=== PATIENT | female | born 1940 | race Asian ===

== ENCOUNTER 2021-06-02 17:21 | Emergency (ER) | payer MEDICARE, OTHER ==
[2021-06-02] MEDS ORDERED: EPINEPHrine 1 MG/ML AMP IM STA (17:32)
[2021-06-02] MEDS ORDERED: diphenhydrAMINE INJ 50 MG/ML VIAL IVP STA (17:33)
[2021-06-02] MEDS ORDERED: methylPREDNISolone SUCCINATE 125 MG/2 ML VIAL IVP STA (17:33)
--- NOTE | 2021-06-02 17:44 | ED Physician Documentation ---
History of Present Illness - Stated complaint Stated Complaint: CAN'T BREATHE - Chief complaint Chief Complaint: Allergic Rx - History obtained from History obtained from: Patient - History of Present Illness Timing: Today, How many hours ago (1) Pain level max: 0 Pain level now: 0 - Additonal information Additional information: Patient is a 80-year-old female who presents to the emergency department with a 1 hour history of hives on her arms and neck. Facial swelling and tongue swelling. She states she has allergies to pollen. Has never had a similar reaction. Nothing makes it better or worse. No foods, soaps, detergents, medication. Review of Systems Constitutional: denies: Fever Throat: denies: Sore throat Cardiac: denies: Palpitations Respiratory: reports: Dyspnea. denies: Cough, Wheezing GI: denies: Vomiting, Diarrhea Skin: denies: Rash Musculoskeletal: denies: Neck pain, Back pain Neurologic: denies: Headache PD PAST MEDICAL HISTORY - Past Medical History Cardiovascular: Hypertension Endocrine/Autoimmune: Type 2 diabetes, Other - Past Surgical History Past Surgical History: No - Present Medications Home Medications: Ambulatory Orders Medication Instructions Recorded Confirmed Adalimumab [Humira] 40 mg SQ UD 05/09/17 05/09/17 Alendronate [Fosamax] 70 mg PO Q7D 05/09/17 05/09/17 Aspirin [Adult Low Dose Aspirin EC] 81 mg PO DAILY 05/09/17 05/09/17 Folic Acid 1 mg PO DAILY 05/09/17 05/09/17 Mecobalamin [B-12] 1,000 mcg PO DAILY 05/09/17 05/09/17 Metformin HCl 850 mg PO BID 05/09/17 05/09/17 Methotrexate [Methotrexate Sodium] 2.5 mg PO DAILY 05/09/17 05/09/17 [place]-3/Dha/Epa/Fish Oil [Fish Oil 1,000 mg PO DAILY 05/09/17 05/09/17 1,000 mg Softgel] Sitagliptin Phosphate [Januvia] 50 mg PO BID 05/09/17 05/09/17 amLODIPine [Norvasc] 5 mg PO DAILY 05/09/17 05/09/17 atenoloL [Atenolol] 25 mg PO DAILY 05/09/17 05/09/17 lisinopriL [Lisinopril] 40 mg PO BID 05/09/17 05/09/17 - Allergies Allergies/Adverse Reactions: Allergies Allergy/AdvReac Type Severity Reaction Status Date / Time No Known Drug Allergies Allergy Verified 06/02/21 17:31 - Social History Does the pt smoke?: No Smoking Status: Never smoker Does the pt drink ETOH?: No Does the pt have substance abuse?: No - Immunizations Immunizations are current?: Yes - POLST Patient has POLST: No PD ED PE NORMAL - Vitals Vital signs reviewed: Yes - General General: Alert and oriented X 3, No acute distress, Well developed/nourished - HEENT HEENT: Moist mucous membranes, Pharynx benign, Other (Diffuse facial swelling, mild tongue swelling) - Neck Neck: Supple, no meningeal sign - Cardiac Cardiac: RRR - Respiratory Respiratory: No respiratory distress, Other (No stridor. Mild wheezing) - Abdomen Abdomen: Soft, Non tender, Non distended - Derm Derm: Warm and dry, Other (Urticaria on the upper back and neck) - Extremities Extremities: No edema - Neuro Neuro: Alert and oriented X 3 Results - Vitals Vitals: Vital Signs - 24 hr 06/02/21 06/02/21 06/02/21 17:25 17:31 18:01 Temperature 36.8 C Heart Rate 88 85 87 Respiratory 16 15 23 Rate Blood Pressure 219/96 H 225/96 H 182/75 H O2 Saturation 93 98 99 Oxygen O2 Source Room air - EKG (time done) 1729 Rate: Rate (enter#) (84) Rhythm: NSR [place]: Normal Intervals: Normal DC QRS: Normal Ischemia: Normal ST segments, Non specific changes PD MEDICAL DECISION MAKING - ED course Complexity details: considered differential, d/w patient ED course: Patient with apparent allergic reaction. Given epinephrine, Solu-Medrol and Benadryl. Patient is improving. Patient will need observation for at least 2 hours post epinephrine injection. Patient will be signed out to the oncoming emergency department physician for final disposition.
[2021-06-02 20:41] VITALS: BP 170/70
--- NOTE | 2021-06-22 17:50 | ED Physician Documentation ---
ED Addendum - Addendum Addendum: 06/22/21 17:44 Received sign out from Dr. Stone at end of his shift pending further o bservation. Patient presented with symptoms c/w allergic reaction without obvious trigger. As the symptoms included facial and oropharyngeal swelling, treatment included IM epinephrine. She was significantly improved at time of turn over of care but given the nature of the symptoms and use of epinephrine as treatment, plan includes observation in ED for recurrence of symptoms. When I reevaluated patient she is AAOx3 and in NAD, reports resolution of symptoms without any recurrence. She is comfortable with discharge home. There is no facial nor oropharyngeal swelling on my exam and lungs are CTA bilaterally DISPOSITION: 01 HOME, SELF CARE CLINICAL IMPRESSION: ALLERGIC REACTION, OTHER CONDITION: GOOD
== END 2021-06-02 20:58 | disposition home or self-care (01) ==
LOC: ED 17:21
DX: E11.9 Type 2 diabetes mellitus without complications (principal); Z79.84 Long term (current) use of oral hypoglycemic drugs; I10 Essential (primary) hypertension
CPT/HCPCS: 36415; 93005; 96372; 96374; 96375; 99283; J1200

== ENCOUNTER 2021-08-20 13:59 | Emergency (ER) | payer MEDICARE, OTHER ==
--- NOTE | 2021-08-20 14:16 | ED Physician Documentation ---
PD HPI ABD PAIN - Stated complaint Stated Complaint: ABD PX - Chief complaint Chief Complaint: Abd Pain - History obtained from History obtained from: Patient - History of Present Illness Timing - onset: How many days ago (2-3) Timing - duration: Days (2-3) Timing - details: Gradual onset, Still present, Waxing and waning Location: RUQ, Epigastric Radiation: No: Chest, Lower back, Right flank Improved by: Laying still Worsened by: Eating, Palpation. No: Breathing Associated symptoms: Nausea. No: Fever, Vomiting, Diarrhea, Constipation, Dysuria Similar symptoms before: Has not had sx before Recently seen: Not recently seen Review of Systems Constitutional: reports: Myalgias. denies: Fever, Chills Nose: denies: Rhinorrhea / runny nose, Congestion Throat: denies: Sore throat Cardiac: denies: Chest pain / pressure Respiratory: denies: Dyspnea, Cough GI: reports: Abdominal Pain, Nausea. denies: Abdominal Swelling, Vomiting, Constipation, Diarrhea : denies: Dysuria Skin: denies: Rash, Lesions Neurologic: reports: Generalized weakness. denies: Near syncope, Altered mental status, Headache PD PAST MEDICAL HISTORY - Past Medical History Cardiovascular: Hypertension Endocrine/Autoimmune: Type 2 diabetes, Other GI: Other (She states previously on Humira for her rheumatoid but has not had it for 6 months. She states some "liver problems" from the Humira.) Musculoskeletal: Rheumatoid arthritis (not currently on any immunosuppressants. ) - Past Surgical History Past Surgical History: No - Present Medications Home Medications: Ambulatory Orders Medication Instructions Recorded Confirmed Adalimumab [Humira] 40 mg SQ UD 05/09/17 05/09/17 Alendronate [Fosamax] 70 mg PO Q7D 05/09/17 05/09/17 Aspirin [Adult Low Dose Aspirin EC] 81 mg PO DAILY 05/09/17 05/09/17 Folic Acid 1 mg PO DAILY 05/09/17 05/09/17 Mecobalamin [B-12] 1,000 mcg PO DAILY 05/09/17 05/09/17 Metformin HCl 850 mg PO BID 05/09/17 05/09/17 Methotrexate [Methotrexate Sodium] 2.5 mg PO DAILY 05/09/17 05/09/17 [place]-3/Dha/Epa/Fish Oil [Fish Oil 1,000 mg PO DAILY 05/09/17 05/09/17 1,000 mg Softgel] Sitagliptin Phosphate [Januvia] 50 mg PO BID 05/09/17 05/09/17 amLODIPine [Norvasc] 5 mg PO DAILY 05/09/17 05/09/17 atenoloL [Atenolol] 25 mg PO DAILY 05/09/17 05/09/17 lisinopriL [Lisinopril] 40 mg PO BID 05/09/17 05/09/17 EPINEPHrine [Epinephrine] 0.3 mg IJ ONCE PRN #2 syr 06/02/21 predniSONE [Deltasone] 40 mg PO DAILY 4 Days #8 tablet 06/02/21 - Allergies Allergies/Adverse Reactions: Allergies Allergy/AdvReac Type Severity Reaction Status Date / Time No Known Drug Allergies Allergy Verified 08/20/21 14:12 - Social History Does the pt smoke?: No Smoking Status: Never smoker Does the pt drink ETOH?: No Does the pt have substance abuse?: No - Immunizations Immunizations are current?: Yes - POLST Patient has POLST: No PD ED PE NORMAL - Vitals Vital signs reviewed: Yes - General General: Alert and oriented X 3, Well developed/nourished - HEENT HEENT: Moist mucous membranes, Pharynx benign - Neck Neck: Supple, no meningeal sign, No adenopathy - Cardiac Cardiac: RRR, No murmur - Respiratory Respiratory: Clear bilaterally - Abdomen Abdomen: Soft, Non distended, Other (tender in epigastric to RUQ area to palpation. No rebound nor percussion tenderness. Lower abd not tender. ) - Female Female : Deferred - Rectal Rectal: Deferred - Back Back: No CVA TTP - Derm Derm: Normal color, Warm and dry - Extremities Extremities: Normal ROM s pain, No edema, No calf tenderness / cord - Neuro Neuro: Alert and oriented X 3, No motor deficit, Normal speech Results - Vitals Vitals: Vital Signs - 24 hr 08/20/21 08/20/21 08/20/21 14:06 14:21 16:00 Temperature 37.7 C 37.7 C Heart Rate 111 H 111 H 105 H Respiratory 18 18 22 Rate Blood Pressure 169/71 H 169/71 H 154/68 H O2 Saturation 97 97 98 Oxygen O2 Source Room air - Labs Labs: Laboratory Tests 02/08/20/21 08/20/21 14:19 14:22 14:22 WBC 19.3 H RBC 3.91 L Hgb 13.0 Hct 37.6 MCV 96.2 MCH 33.2 H MCHC 34.6 RDW 11.9 L Plt Count 194 MPV 11.5 H Neut # (Auto) Not Reportable Lymph # (Auto) Not Reportable [place] # (Auto) Not Reportable Eos # (Auto) Not Reportable Baso # (Auto) Not Reportable Absolute Nucleated RBC Not Reportable Total Counted 100 Band Neuts % (Manual) 49 H Abnorm Lymph % (Manual) 0 Nucleated RBC % Not Reportable Neutrophils # (Manual) 19.1 H Lymphocytes # (Manual) 0.2 L Monocytes # (Manual) 0.0 Eosinophils # (Manual) 0.0 Basophils # (Manual) 0.0 Differential Comment MANUAL DIFFERENTIAL WBC Morphology 2+ VACUOLATION Sodium 125 L Potassium 3.6 Chloride 87 L Carbon Dioxide 19 L Anion Gap 19.0 H BUN 30 H Creatinine 1.3 H Estimated GFR (MDRD) 40 L Glucose 429 H POC Whole Bld Glucose Lactic Acid Calcium 8.9 Total Bilirubin 5.1 H AST 631 H ALT 501 H Alkaline Phosphatase 79 Ammonia Total Protein 7.9 Albumin 3.9 Globulin 4.0 Albumin/Globulin Ratio 1.0 Lipase 42 Urine Color DARK YELLOW Urine Clarity CLEAR Urine pH 5.5 Ur Specific [place] 1.020 Urine Protein TRACE Urine Glucose (UA) >=1000 H Urine Ketones 15 H Urine Occult Blood TRACE-INTA Urine Nitrite NEGATIVE Urine Bilirubin SMALL H Urine Urobilinogen 1 (NORMAL) Ur Leukocyte Esterase NEGATIVE Ur Microscopic Review NOT INDICATED Urine Culture Comments NOT INDICATED Nasal Adenovirus (PCR) Nasal B. parapertussis DNA (PCR) Nasal Coronavir 229E PCR Nasal Coronavir HKU1 PCR Nasal Coronavir NL63 PCR Nasal Coronavir OC43 PCR Nasal Enterovir/Rhinovir PCR Nasal Influenza B PCR Nasal Influenza A PCR Nasal Parainfluen 1 PCR Nasal Parainfluen 2 PCR Nasal Parainfluen 3 PCR Nasal Parainfluen 4 PCR Nasal RSV (PCR) Nasal B.pertussis DNA PCR Nasal C.pneumoniae (PCR) Addy Human Metapneumo PCR Nasal M.pneumoniae (PCR) Nasal SARS-CoV-2 (PCR) Serum Ketones 08/20/21 08/20/21 08/20/21 14:22 15:54 16:19 WBC RBC Hgb Hct MCV MCH MCHC RDW Plt Count MPV Neut # (Auto) Lymph # (Auto) [place] # (Auto) Eos # (Auto) Baso # (Auto) Absolute Nucleated RBC Total Counted Band Neuts % (Manual) Abnorm Lymph % (Manual) Nucleated RBC % Neutrophils # (Manual) Lymphocytes # (Manual) Monocytes # (Manual) Eosinophils # (Manual) Basophils # (Manual) Differential Comment WBC Morphology Sodium Potassium Chloride Carbon Dioxide Anion Gap BUN Creatinine Estimated GFR (MDRD) Glucose POC Whole Bld Glucose Lactic Acid Calcium Total Bilirubin AST ALT Alkaline Phosphatase Ammonia 13.0 Total Protein Albumin Globulin Albumin/Globulin Ratio Lipase Urine Color Urine Clarity Urine pH Ur Specific [place] Urine Protein Urine Glucose (UA) Urine Ketones Urine Occult Blood Urine Nitrite Urine Bilirubin Urine Urobilinogen Ur Leukocyte Esterase Ur Microscopic Review Urine Culture Comments Nasal Adenovirus (PCR) NOT DETECTED Nasal B. parapertussis DNA (PCR) NOT DETECTED Nasal Coronavir 229E PCR NOT DETECTED Nasal Coronavir HKU1 PCR NOT DETECTED Nasal Coronavir NL63 PCR NOT DETECTED Nasal Coronavir OC43 PCR NOT DETECTED Nasal Enterovir/Rhinovir PCR NOT DETECTED Nasal Influenza B PCR NOT DETECTED Nasal Influenza A PCR NOT DETECTED Nasal Parainfluen 1 PCR NOT DETECTED Nasal Parainfluen 2 PCR NOT DETECTED Nasal Parainfluen 3 PCR NOT DETECTED Nasal Parainfluen 4 PCR NOT DETECTED Nasal RSV (PCR) NOT DETECTED Nasal B.pertussis DNA PCR NOT DETECTED Nasal C.pneumoniae (PCR) NOT DETECTED Addy Human Metapneumo PCR NOT DETECTED Nasal M.pneumoniae (PCR) NOT DETECTED Nasal SARS-CoV-2 (PCR) NOT DETECTED Serum Ketones NEGATIVE 08/20/21 08/20/21 16:19 16:22 WBC RBC Hgb Hct MCV MCH MCHC RDW Plt Count MPV Neut # (Auto) Lymph # (Auto) [place] # (Auto) Eos # (Auto) Baso # (Auto) Absolute Nucleated RBC Total Counted Band Neuts % (Manual) Abnorm Lymph % (Manual) Nucleated RBC % Neutrophils # (Manual) Lymphocytes # (Manual) Monocytes # (Manual) Eosinophils # (Manual) Basophils # (Manual) Differential Comment WBC Morphology Sodium Potassium Chloride Carbon Dioxide Anion Gap BUN Creatinine Estimated GFR (MDRD) Glucose POC Whole Bld Glucose 406 H Lactic Acid 2.7 H Calcium Total Bilirubin AST ALT Alkaline Phosphatase Ammonia Total Protein Albumin Globulin Albumin/Globulin Ratio Lipase Urine Color Urine Clarity Urine pH Ur Specific [place] Urine Protein Urine Glucose (UA) Urine Ketones Urine Occult Blood Urine Nitrite Urine Bilirubin Urine Urobilinogen Ur Leukocyte Esterase Ur Microscopic Review Urine Culture Comments Nasal Adenovirus (PCR) Nasal B. parapertussis DNA (PCR) Nasal Coronavir 229E PCR Nasal Coronavir HKU1 PCR Nasal Coronavir NL63 PCR Nasal Coronavir OC43 PCR Nasal Enterovir/Rhinovir PCR Nasal Influenza B PCR Nasal Influenza A PCR Nasal Parainfluen 1 PCR Nasal Parainfluen 2 PCR Nasal Parainfluen 3 PCR Nasal Parainfluen 4 PCR Nasal RSV (PCR) Nasal B.pertussis DNA PCR Nasal C.pneumoniae (PCR) Addy Human Metapneumo PCR Nasal M.pneumoniae (PCR) Nasal SARS-CoV-2 (PCR) Serum Ketones - Rads (name of study) abd/pelvic CT Radiology: Prelim report reviewed (Distended gallbladder without any pericholecystic fluid. Biliary system appears normal. No acute findings in the abd/pelvis.), See rad report ruq U/S Radiology: Prelim report reviewed (some mobile sludge in GB, CBD 6 mm not enlarged, no signs cholecystitis. ), See rad report PD MEDICAL DECISION MAKING - ED course Complexity details: reviewed results (CT without any acute findings. Some gallbladder distention without any signs of cholecystitis. Biliary system is normal. Her white count is quite elevated and LFTs are elevated. Consider viral illness with hepatic involvement. Still looking for source of worse infection.), re-evaluated patient, considered differential, d/w patient, d/w recruiting operations consultant (I talked with [facility] hospitalist who asked that we consult surgery. I talked with Dr. Angelo on-call who was concerned for possible gallbladder blockage with cholangitis despite the normal CT and ultrasound. He suggests transfer to a facility that has capacity for ERCP.) ED course: Care is transferred to Dr. Mejía at change of shift. We will be looking for higher level of care facility at another hospital. She is comfortable at this point without any notable abdominal tenderness. She feels improved from initial presentation. Vitals are stable. Departure - Departure Disposition: 02 Transfer Acute Care Hosp Clinical Impression: Epigastric abdominal pain Leukocytosis Qualifiers: Leukocytosis type: bandemia Qualified Code(s): D72.825 - Bandemia Sepsis Qualifiers: Sepsis type: sepsis due to unspecified organism Sepsis acute organ dysfunction status: with acute organ dysfunction Severe sepsis acute organ dysfunction type: acute liver failure Hepatic coma status: without hepatic coma Severe sepsis shock status: without septic shock Qualified Code(s): A41.9 - Sepsis, unspecified organism Condition: Stable Record reviewed to determine appropriate education?: Yes
[2021-08-20 14:28] LABS: GLUCOSE, URINE (UA) >=1000 mg/dL (NEGATIVE); KETONES,URINE (UA) 15 mg/dL (NEGATIVE); LEUKOCYTE ESTERASE, URINE NEGATIVE (NEGATIVE); NITRITE,URINE NEGATIVE (NEGATIVE); OCCULT BLOOD,URINE TRACE-INTA (NEGATIVE); PH,URINE 5.5 PH (5.0-7.5); PROTEIN,URINE TRACE mg/dL (NEGATIVE); UROBILINOGEN,URINE 1 (NORMAL) E.U./dL (NORMAL)
[2021-08-20 14:28] LABS: BASOPHILS % (AUTO) 0.2 %; EOSINOPHILS % (AUTO) 1.6 %; HCT - HEMATOCRIT 37.6 % (37.0-47.0); LYMPHOCYTES % (AUTO) 2.5 %; MEAN CORPUSCULAR HEMOGLOBIN 33.2 pg (27.0-31.0); MEAN CORPUSCULAR HGB CONC 34.6 g/dL (32.0-36.0); MEAN CORPUSCULAR VOLUME 96.2 fL (81.0-99.0); MEAN PLATELET VOLUME 11.5 fL (7.9-10.8); MONOCYTES % (AUTO) 2.7 %; NEUTROPHILS % (AUTO) 92.6 %; PLT - PLATELET COUNT 194 10^3/uL (130-450); RED BLOOD COUNT 3.91 10^6/uL (4.20-5.40); RED CELL DISTRIBUTION WIDTH 11.9 % (12.0-15.0); WHITE BLOOD COUNT 19.3 x10^3/uL (4.8-10.8)
[2021-08-20 14:30] LABS: ABNORMAL LYMPHS % (MANUAL) 0 %
[2021-08-20 14:31] LABS: BILIRUBIN,URINE SMALL (NEGATIVE); CLARITY,URINE CLEAR (CLEAR); ICTOTEST,URINE POSITIVE
[2021-08-20] MEDS ORDERED: ONDANSETRON 4 MG/2 ML VIAL IVP STA (14:36)
[2021-08-20] MEDS ORDERED: SODIUM CHLORIDE 0.9% 1,000 ML IV STA ×3 (14:36→16:56)
[2021-08-20] MEDS ORDERED: MORPHINE 2 MG/ML CARPUJECT IVP STA (14:36)
[2021-08-20] MEDS ORDERED: FAMOTIDINE 20 MG/2 ML VIAL IVP STA (14:36)
[2021-08-20 14:45] LABS: BAND NEUTROPHILS % (MANUAL) 49 %; DIFFERENTIAL COMMENT MANUAL DIFFERENTIAL; LYMPHOCYTES # (MANUAL) 0.2 10^3/uL (1.5-3.5); LYMPHOCYTES % (MANUAL) 1 %; NEUTROPHILS # (MANUAL) 19.1 10^3/uL (1.5-6.6); WBC MORPHOLOGY (MULTIPLE) 2+ VACUOLATION (NORMAL)
[2021-08-20 14:47] LABS: ALBUMIN 3.9 g/dL (3.2-5.5); BILIRUBIN,TOTAL 5.1 mg/dL (0.2-1.0); CALCIUM 8.9 mg/dL (8.5-10.3); CREATININE 1.3 mg/dL (0.4-1.0); POTASSIUM 3.6 mmol/L (3.5-5.0); TOTAL PROTEIN 7.9 g/dL (6.7-8.2)
[2021-08-20] MEDS ORDERED: IOVERSOL 320 100 ML VIAL IVP ONE ×2 (14:50→16:18)
[2021-08-20] MEDS ORDERED: PIPERACILLIN/TAZOBACTAM 3.375 GM in SODIUM CHLORIDE 0.9% MINIBAG 100 ML IV STA (15:36)
--- NOTE | 2021-08-20 15:57 | CT Report ---
PROCEDURE: CT abdomen and pelvis with contrast INDICATIONS: upper abd pain for few days CONTRAST: IV CONTRAST: Optiray 320 ml: 100 PO CONTRAST: *NO PO CONTRAST TECHNIQUE: After the administration of contrast, 5 mm thick sections acquired from the diaphragms to the sym physis. 5 mm thick coronal and sagittal reformats were acquired. For radiation dose reduction, the following was used: automated exposure control, adjustment of mA and/or kV according to patient size . COMPARISON: None. FINDINGS: Image quality: Excellent. ABDOMEN: Lung bases: Lung bases are clear. Heart size is normal. Dense coronary artery vascular calcificati on present. Solid organs: Liver and spleen are normal in size and enhancement other than hepatic fatty infiltrat ion. Gallbladder distended but otherwise unremarkable. Biliary system is non dilated. Pancreas enh ances normally. No adrenal nodules. Kidneys demonstrate normal size and enhancement, without hydron ephrosis. Peritoneum and bowel: Bowel loops demonstrate normal wall thickness and caliber. No free fluid or a ir. Nodes and vessels: No retroperitoneal or mesenteric adenopathy by size criteria. Aorta and inferior vena cava are normal in size. Atherosclerotic calcification of the abdominal aorta without evidence of aneurysm. Miscellaneous: No ventral hernias. PELVIS: Genitourinary: Bladder wall thickness is normal. Calcified uterine fibroids measure up to 2.75 cm Miscellaneous: No inguinal hernias or adenopathy. Bones: No suspicious bony lesions. No vertebral body compression fractures. IMPRESSION: No acute CT findings in the abdomen and pelvis. Gallbladder distention without pericholecystic inflammatory change. Calcified uterine fibroids Reviewed by: Sreedhar Valentin MD on 08/20/2021 2:56 PM AKST Approved by: Sreedhar Valentin MD on 08/20/2021 2:56 PM AKST Station ID: [id number]
[2021-08-20] MEDS ORDERED: POTASSIUM CHLOR 10 MEQ/100 ML 10 MEQ/100 ML BAG IV STA (16:37)
[2021-08-20] MEDS ORDERED: INSULIN REGULAR HUMAN 100 UNIT/1 ML 10 ML MDV IVP STA ×2 (16:37→17:35)
[2021-08-20 16:45] LABS: B. PARAPERTUSSIS- RESP PCR PAN NOT DETECTED; B. PERTUSSIS- RESP PCR PANEL NOT DETECTED; C. PNEUMONIAE- RESP PCR PANEL NOT DETECTED; CORONAVIRUS 229E-RESP PCR NOT DETECTED; CORONAVIRUS HKU1-RESP PCR NOT DETECTED; CORONAVIRUS NL63-RESP PCR NOT DETECTED; CORONAVIRUS OC43-RESP PCR NOT DETECTED; HUMAN METAPNEUMOVIRUS NOT DETECTED; INFLUENZA A- RESP PCR PANEL NOT DETECTED; INFLUENZA B - RESP PCR PANEL NOT DETECTED; M. PNEUMONIAE- RESP PCR PANEL NOT DETECTED; PARAINFLUENZA VIRUS 1 NOT DETECTED; PARAINFLUENZA VIRUS 2 NOT DETECTED; PARAINFLUENZA VIRUS 3 NOT DETECTED; PARAINFLUENZA VIRUS 4 NOT DETECTED; RHINOVIRUS/ENTEROVIRUS NOT DETECTED; RSV- RESP PCR PANEL NOT DETECTED; SARS-CoV-2 -RESP PCR PANEL NOT DETECTED
[2021-08-20] MEDS ORDERED: metroNIDAZOLE 500 MG/100 ML 500 MG/100 ML BAG IV ONE (17:35)
--- NOTE | 2021-08-20 17:37 | ED Physician Documentation ---
ED Addendum - Addendum Addendum: 08/20/21 17:36 Care transferred to [place] by Dr. Swain at shift change, briefly this is a 81-year-old woman with a few days of epigastric pain, found to have a white count of 19,000 with bandemia, elevated liver enzymes but normal alkaline phosphatase, elevated blood sugar and other signs of sepsis. She had already been cultured up and given Zosyn. He had discussed the case by phone with our hospitalist and surgeon who recommended transfer to a facility capable of ERCP. The community relations rep is working on that. She appears stable and is nontender and pain-free on my evaluation at this time. 08/20/21 18:[address] Hutchinson to [facility], this was after Dr. Swain had spoken with ROXI Cordova. She is stable for transfer. The accepting physician requests repeat lactate and this was ordered. Disposition: Transferred to [facility] for specialty consultation Condition: Serious but stable Diagnosis 1. Intra-abdominal sepsis 2. Elevated liver enzymes
[2021-08-20 17:44] LABS: ACETAMINOPHEN < 10 ug/mL (10-30); SALICYLATE < 6.0 mg/dL
[2021-08-20 18:13] VITALS: BP 123/67
--- NOTE | 2021-08-20 18:30 | Ultrasound Report ---
PROCEDURE: Abdomen Limited INDICATIONS: elevated LFTs. distended GB, but CT no cholecystit TECHNIQUE: Real-time focused scanning was performed of the abdomen, with image documentation. COMPARISON: CT abdomen and pelvis same day FINDINGS: Liver: Liver shows diffusely increased echogenicity without focal mass lesion. No intrahepatic duct al dilation. Gallbladder: No evidence of shadowing calculi. There is a focal sludge ball noted measuring 1 cm. Ga llbladder is distended. No color wall thickening or pericholecystic fluid. Common Bile Duct: 6 mm. Pancreas: Unremarkable as visualized. Right Kidney: Appropriate in size and echotexture. No evidence of hydronephrosis. No shadowing calc xochitl. No solid or cystic mass lesion. IMPRESSION: Hepatic fatty infiltration Biliary sludge and gallbladder distention without evidence of cholelithiasis or acute cholecystitis. Reviewed by: Sreedhar Valentin MD on 08/20/2021 5:28 PM AKST Approved by: Sreedhar Valentin MD on 08/20/2021 5:28 PM AKST Station ID: [id number]
--- NOTE | 2021-08-20 18:32 | XRAY Report ---
PROCEDURE: Chest 1 View X-Ray INDICATIONS: upper abd pain, sepsis TECHNIQUE: One view of the chest was acquired. COMPARISON: FINDINGS: Surgical changes and devices: None. Lungs and pleura: No pleural effusions or pneumothorax. Lungs are clear. Mediastinum: Mediastinal contours appear normal. Heart size is normal. Atherosclerotic vascular frantz cification noted in the arch Bones and chest wall: No suspicious bony lesions. Overlying soft tissues appear unremarkable. IMPRESSION: 1. No acute cardiopulmonary findings Reviewed by: Sreedhar Valentin MD on 08/20/2021 5:31 PM [place] Approved by: Sreedhar Valentin MD on 08/20/2021 5:31 PM [place] Station ID: [id number]
[2021-08-22 09:56] LABS: HEPATITIS A IGM NON-REACTIVE (NON-REACTIVE); HEPATITIS B CORE ANTIBODY IGM NON-REACTIVE (NON-REACTIVE); HEPATITIS B SURFACE ANTIGEN NON-REACTIVE (NON-REACTIVE); HEPATITIS C ANTIBODY NON-REACTIVE (NON-REACTIVE)
== END 2021-08-20 19:50 | disposition short-term general hospital (02) ==
LOC: ED 13:59
DX: A41.9 Sepsis, unspecified organism (principal); R65.20 Severe sepsis without septic shock; K72.00 Acute and subacute hepatic failure without coma; K82.8 Other specified diseases of gallbladder; D72.825 Bandemia; R74.8 Abnormal levels of other serum enzymes; E11.65 Type 2 diabetes mellitus with hyperglycemia; Z79.84 Long term (current) use of oral hypoglycemic drugs; Z20.822 Contact with and (suspected) exposure to COVID-19; I10 Essential (primary) hypertension; Z79.82 Long term (current) use of aspirin
CPT/HCPCS: 36415; 71045; 74177; 76705; 80053; 80074; 80307; 81003; 82009; 82140; 83605; 83690; 85025; 87040; 87631; 93005; 96361; 96365; 96367; 96375; 99284; 99285; G0480; J1815; Q9967; 0202U; 80329; 81001; 87086

== ENCOUNTER 2021-08-20 18:59 | Outpatient (CLI) | payer MEDICARE, OTHER | END 2021-08-20 19:00 | disposition short-term general hospital (02) | LOC: EMS 18:59 | PROVIDERS: ATTEND Emergency Medicine | DX: K65.1 Peritoneal abscess (principal) | CPT/HCPCS: A0425; A0426 ==